=== PATIENT | male | born 2000 | race Caucasian/White ===

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

== ENCOUNTER 2022-06-19 19:31 | Emergency (ER) | payer BC, OTHER ==
[2022-06-19] MEDS ORDERED: Lidocaine 1% with EPINEPHrine 1:100,000 50 ML MDV INFILT STA (22:10)
[2022-06-19] MEDS ORDERED: Bacitracin Oint 1 GM U/D Packet TOP ONE (22:10)
[2022-06-19 22:24] VITALS: BP 150/91; PULSE 88
== END 2022-06-19 23:24 | disposition home or self-care (01) ==
LOC: JP.ED 19:31
DX: S61.217A Laceration without foreign body of left little finger without damage to nail, initial encounter (principal); W26.9XXA Contact with unspecified sharp object(s), initial encounter
CPT/HCPCS: 12002; 99282